=== PATIENT | female | born 1995 | race Caucasian/White ===

== ENCOUNTER 2021-04-12 05:10 | Day surgery (SDC) | payer BC ==
[~2021-04-12] VITALS: Ht 165.1 cm; Wt 96.2 kg
[2021-04-12 06:00] LABS: HEMATOCRIT 37.3 % (36.0-48.0); HEMOGLOBIN 12.5 g/dL (12-16); MCH 28.4 pg (26.0-34.0); MCHC 33.4 g/dL (31.0-37.0); MEAN PLATELET VOLUME 7.9 fL (7.4-10.4); RBC 4.38 10x6/uL (4.00-5.40); RDW 13.6 % (11.5-14.5); WBC 7.1 10x3/uL (4.8-10.8)
[2021-04-12] MEDS ORDERED: SPRINTEC 28 DA1 EAC1 (06:23)
[2021-04-12 06:35] LABS: HCG SERUM NEGATIVE (NEGATIVE)
[2021-04-12 06:50] VITALS: BP 130/77; Ht 165.1 cm; Wt 96.2 kg
== END 2021-04-12 10:45 | disposition home or self-care (01) ==
LOC: D.OPS 05:10
PROVIDERS: Anesthesiology; ATTEND Obstetrics & Gynecology Maternal & Fetal Medicine
DX: R10.2 Pelvic and perineal pain (principal); N94.6 Dysmenorrhea, unspecified; N94.10 Unspecified dyspareunia